=== PATIENT | male | born 1985 | race African-American/Black ===

== ENCOUNTER 2017-08-02 08:24 | Emergency (ER) | payer MEDICAID ==
[~2017-08-02 08:24] MED LIST: IBUPROFEN PO; KEFLEX PO; MOBIC PO; MUCINEX DM1 TAB.SR . PO; NO MEDICATIONS; ROBAXIN500 MG PO
[2017-08-02] MEDS ORDERED: NO MEDICATIONS (08:31)
== END 2017-08-02 08:48 | disposition home or self-care (01) ==
LOC: SED 08:24
DX: J02.0 Streptococcal pharyngitis (principal); I10 Essential (primary) hypertension; F17.200 Nicotine dependence, unspecified, uncomplicated
CPT/HCPCS: 99282

== ENCOUNTER 2017-08-02 13:52 | Emergency (ER) | payer MEDICAID ==
[~2017-08-02] VITALS: Ht 185.4 cm; Wt 90.7 kg
== END 2017-08-02 14:28 | disposition home or self-care (01) ==
LOC: SED 13:52
DX: L73.9 Follicular disorder, unspecified (principal)
CPT/HCPCS: 99283